=== PATIENT | male | born 1965 | race Caucasian/White ===

== ENCOUNTER 2018-05-01 23:56 | Emergency (ER) | payer MEDICARE, OTHER ==
[~2018-05-01] VITALS: Ht 180.3 cm; Wt 128.5 kg
[~2018-05-01 23:56] MED LIST: HYDR-3111 PO; HYDR-3533 PO; IBUP600T26 PO; LISI40TA PO; TAMS0.4C67 PO; ZANTTAB9 PO
[2018-05-02 00:10] VITALS: BP 185/102; PULSE 85; RESP 20; TEMP 98; O2SAT 95
[2018-05-02] MEDS ORDERED: LIDOCAINE VISCOUS 2% SOLN 15 ML UDC OTHER ONE (00:15)
--- NOTE | 2018-05-02 00:27 | PD ---
HPI Chief Complaint: Ear foreign body Time Seen by Provider: 00:13 Travel History International Travel<30 days: No Contact w/Intl Traveler<30days: No Traveled to known affect area: No History of Present Illness HPI 53-year-old male presents to the emergency department reporting that a bug has flown into his right ear canal just prior to arrival to the emergency department. Patient reports irritation from the insect. Patient denies other concerns or complaints. PFSH Past Medical History Narrative Medical Nephrolithiasis, hypertension; tobacco use; nursing notes reviewed Diminished Hearing: No GERD: Yes Hypertension: Yes Past Surgical History Other Surgery: Yes (FATTY TUMOR REMOVED) Social History Alcohol Use: No Tobacco Use: Yes (11/22 PPD) Substance Use: No Allergies-Medications (Allergen,Severity, Reaction): Coded Allergies: Iodinated Contrast- Oral and IV Dye (Unverified Allergy, Severe, 07/05/17) Reported Meds & Prescriptions Reported Meds & Active Scripts Active Flomax (Tamsulosin HCl) 0.4 Mg Cap 0.4 Mg PO DAILY 10 Days Lortab 5 mg/325 mg (Hydrocodone/Acetaminophen 5 mg/325 mg) 1 Tab 1 Tab PO Q4H PRN Ibuprofen 600 Mg Tab 600 Mg PO Q8HR PRN Reported Zantac 75 (Ranitidine HCl) Tab 75 Mg PO DAILY Vicodin 5/300 (Hydrocodone/Acetaminophen 5/300) 5 Mg/300 Mg Tab 1 Tab PO Q6H PRN Prinivil 40 mg (Lisinopril) 40 Mg Tab 1 Tab PO DAILY Review of Systems Except as stated in HPI: all other systems reviewed are Neg HENT: Positive: Earache (Foreign body sensation/insect right external auditory canal) Physical Exam Narrative GENERAL: SKIN: Warm and dry. HEAD: Normocephalic. EYES: No scleral icterus. No injection or drainage. ENT: Attention right external auditory canal positive retained insect with movement noted no blood or drainage. NECK: Supple, trachea midline. No JVD or lymphadenopathy. Data Data Last Documented VS Vital Signs Date Time Temp Pulse Resp B/P (MAP) Pulse Ox O2 Delivery O2 Flow Rate FiO2 05/02/18 00:10 98.0 85 20 185/102 (129) 95 Orders Orders Lidocaine 2% Viscous (Xylocaine 2% Visco (05/02/18 00:15) [facility] Medical Decision Making Medical Screen Exam Complete: Yes Emergency Medical Condition: Yes Medical Record Reviewed: Yes Differential Diagnosis Insect external auditory canal, tympanic membrane perforation Narrative Course 2% viscous lidocaine injected into the right external auditory canal; Diagnosis Primary Impression: Foreign body in right ear, initial encounter Kendra Suárez MD May 02, 2018 00:27
[2018-05-02] MEDS ORDERED: CARBAMIDE PEROXIDE 6.5% OTIC SOLN 15 ML BTL RIGHT EAR ONE (01:00)
[2018-05-02] MEDS ORDERED: LISI-515 PO (01:24)
[2018-05-02] MEDS ORDERED: CHOLESTEROL MED (01:24)
[2018-05-02] MEDS ORDERED: LISI20TA PO (01:24)
[2018-05-02] MEDS ORDERED: RANI1TAB5 PO (01:24)
[2018-05-02] MEDS ORDERED: HYDR-3516 PO (01:24)
[2018-05-02] MEDS ORDERED: GABA100C4 PO (01:24)
[2018-05-02 02:33] VITALS: BP 169/88
== END 2018-05-02 02:35 | disposition home or self-care (01) ==
LOC: PHED 23:56
DX: T16.1XXA Foreign body in right ear, initial encounter (principal); I10 Essential (primary) hypertension; K21.9 Gastro-esophageal reflux disease without esophagitis; F17.200 Nicotine dependence, unspecified, uncomplicated; Z79.899 Other long term (current) drug therapy
CPT/HCPCS: 99283